=== PATIENT | female | born 1960 | race African-American/Black ===

== ENCOUNTER 2023-05-16 08:00 | Observation (INO) | payer OTHER ==
[~2023-05-16 08:00] MED LIST: ACETAMINOPHEN 1000 MG/100 ML 100 ML IV ONE; CEFAZOLIN SODIUM 2 GM ONE; CELECOXIB 200 MG CAP ONE; DEXAMETHASONE SOD PHOS 10 MG/1 ML VIAL ONE; FISH OIL 1,0001 EAC7 PO; GABAPENTIN 300 MG CAP ONE; LACTATED RINGER'S 1,000 ML ONE; LOSARTAN-HCTZ1 EACH PO; MELOXICAM7.5 MG PO; METHOCARBAMOL750 MG PO; NEURONTIN300 MG PO; ROPIVACAINE 246.25 MG, EPINEPHRINE HCL 1:1000 1ML 0.5 MG, CLONIDINE HCL 0.08 MG, KETORO... INJ ONE; SODIUM CHLORIDE 0.9% 500ML 500 ML ONE; TRANEXAMIC ACID 20 ML ONE; VITAMIN D3 COM1 EACH PO; Vancomycin IV 1,000 MG ONE
[2023-05-16] MEDS ORDERED: ASPIRIN 325 MG TAB PO SCH (09:00)
[2023-05-16] MEDS ORDERED: ONDANSETRON HCL INJ 2MG/ML 2ML 2 MG/ML VIAL IV PRN (09:00)
[2023-05-16] MEDS ORDERED: SODIUM CHLORIDE 0.9% 1000ML 1,000 ML IV SCH (09:00)
[2023-05-16] MEDS ORDERED: HYDROCODONE/APAP 5MG-325MG TAB PO PRN ×2 (09:00→09:30)
[2023-05-16] MEDS ORDERED: HYDROCODONE/APAP 7.5MG-325MG 1 EA TAB PO PRN ×2 (09:00→09:30)
[2023-05-16] MEDS ORDERED: DIPHENHYDRAMINE HCL INJ 50 MG/ML VIAL IV PRN ×2 (09:00→09:30)
[2023-05-16] MEDS ORDERED: DOCUSATE SODIUM 100 MG CAP PO PRN ×2 (09:00→09:30)
[2023-05-16] MEDS: FENTANYL CITRATE/PF 100MCG/2 ML INJ ONE ×4 (09:46→10:02)
[2023-05-16] MEDS ORDERED: ONDANSETRON HCL INJ 2MG/ML 2ML 2 MG/ML VIAL ONE ×2 (10:01→13:54)
[2023-05-16] MEDS ORDERED: METOCLOPRAMIDE HCL 10 MG/2ML VIAL ONE (10:37)
[2023-05-16] MEDS ORDERED: ASPIRIN81 MG PO (13:12)
[2023-05-16 13:15] VITALS: BP 138/81; PULSE 75; RESP 16; O2SAT 96
[2023-05-16] MEDS ORDERED: SEVOFLURANE INHAL SOLN 250 ML PEN BTL ONE (13:54)
[2023-05-16] MEDS ORDERED: LIDOCAINE HCL 2% LOCAL INJ 5 ML SDV VIAL INJ ONE (13:54)
[2023-05-16] MEDS ORDERED: PROPOFOL IV EMULSION 10 MG/ML 20 ML VIAL ONE (13:54)
[2023-05-16] MEDS ORDERED: KETOROLAC TROMETHAMINE 30 MG/ML VIAL ONE (13:54)
[2023-05-16] MEDS ORDERED: DEXAMETHASONE SOD PHOS INJ 4 MG/ML SDV ONE (13:54)
[2023-05-16] MEDS ORDERED: EPHEDRINE SULFATE INJ 50 MG/ML VIAL ONE (13:54)
[2023-05-16] MEDS ORDERED: POVIDONE IODINE 0.05% 0.05 % ML PO ONE (13:54)
[2023-05-16] MEDS ORDERED: CELECOXIB 200 MG CAP PO SCH (17:00)
[2023-05-17] MEDS ORDERED: ACETAMINOPHEN 1000 MG/100 ML IV PRN (09:00)
== END 2023-05-16 13:41 | disposition home health service (06) ==
LOC: OR 08:00 → PACU V 08:47 → OR 09:00
PROVIDERS: ADMIT Specialist; ATTEND Specialist
DX: M17.11 Unilateral primary osteoarthritis, right knee (principal); I10 Essential (primary) hypertension; Z01.812 Encounter for preprocedural laboratory examination
CPT/HCPCS: 27447; 73560; 86850; 86900; 97110; 97116; 97161; 97530; C1713 ×2; C1776 ×3; G0378; J0131; J0171; J0690; J1100 ×2; J1885; J2001; J2405; J2704; J2765; J2795; J3010; J3370; J7030; J7040; J7121